=== PATIENT | female | born 1985 | race Caucasian/White ===

== ENCOUNTER 2018-09-14 19:47 | Emergency (ER) | payer MEDICARE, OTHER ==
[~2018-09-14] VITALS: Ht 157.5 cm; Wt 63.5 kg
--- NOTE | 2018-09-14 19:54 | ED.ADGEN ---
Adult General Chief Complaint Chief Complaint ".. I feel like I have pin s and needles all over my body...".. I ve had a cold... 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 A. .. but [facility].... they said I did not have the flu.. but I get these pin and needle sensation all over the body at different times and places..." HPI HPI Patient is a 33 year old female who presents with above history and complaints of upper respiratory infection and intermittent episodes of pins and needles in different parts of her body. Patient is in contact with sick individuals during her work as a social human services assistants. Patient denies any changes in soaps or foods or other exposures. No recent travel. No history of HIV. No hx of immunosuppression. Patient normally healthy. Patient does not follow-up primary care. Patient did not receive flu vaccination this season. Pt. has had Pneumonia last year. Pt. has had [place] previously. Review of Systems Review of Systems Constitutional: Hx of fever or chills []Hx. of Malaise Eyes: Denies change in visual acuity, redness, or eye pain [] HENT: Hx of nasal congestion and sore throat [] Respiratory: Denies cough or shortness of breath [] Cardiovascular: No additional information not addressed in HPI [] GI: Denies abdominal pain, nausea, vomiting, bloody stools or diarrhea [] : Denies dysuria or hematuria [] Musculoskeletal: Hx. myalgia, arthralgia Integument: Denies rash or skin lesions, complaints of pins and needle sensation Neurologic: Denies headache, focal weakness or sensory changes [] Endocrine: Denies polyuria or polydipsia [] All other systems were reviewed and found to be within normal limits, except as documented in this note. Family History Family History Son has influenza A Current Medications Current Medications Current Medications Medications (Trade) Dose Ordered Sig/Joan Start Time Stop Time Status Last Admin Dose Admin Lactated Ringer's 1,000 ml @ 1,000 mls/hr Q1H 09/14/18 20:30 09/14/18 21:29 DC 09/14/18 20:44 1,000 MLS/HR Prednisone (Prednisone) 50 mg 1X ONCE 09/14/18 20:30 09/14/18 20:31 DC 09/14/18 20:52 50 MG Allergies Allergies Allergies Coded Allergies Type Severity Reaction Last Updated Verified Penicillins Allergy Mild N/V 09/14/18 Yes Physical Exam Physical Exam Constitutional: Moderately acute distress, non-toxic appearance. [] HENT: Normocephalic, atraumatic, bilateral external ears normal, oropharynx moist, mild injection of pharynx, no oral exudates, nose swollen turbinates and rhinorrhea Eyes: PERRLA, EOMI, conjunctiva normal, no discharge. [] Neck: Normal range of motion, no tenderness, supple, no stridor. [] Cardiovascular:Heart rate regular rhythm, no murmur [] Lungs & Thorax: Bilateral breath sounds clear to auscultation [] Abdomen: Bowel sounds normal, soft, no tenderness, no masses, no pulsatile masses. [] Skin: Warm, dry, no erythema, no rash. [] Back: No tenderness, no CVA tenderness. [] Extremities: No tenderness, no cyanosis, no clubbing, ROM intact, no edema. [] Neurologic: Alert and oriented X 3, normal motor function, normal sensory function, no focal deficits noted. [] Psychologic: Affect anxious, judgement normal, mood normal. [] Current Patient Data Vital Signs Vital Signs Date Time Temp Pulse Resp B/P (MAP) Pulse Ox O2 Delivery O2 Flow Rate FiO2 09/14/18 21:30 92 116/40 (65) 100 09/14/18 21:04 16 Room Air 09/14/18 20:00 98.2 Lab Results Laboratory Tests Test 09/14/18 20:26 09/14/18 20:41 White Blood Count 3.4 x10^3/uL (4.0-11.0) L Red Blood Count 4.39 x10^6/uL (3.50-5.40) Hemoglobin 13.7 g/dL (12.0-15.5) Hematocrit 40.4 % (36.0-47.0) Mean Corpuscular Volume 92 fL (79-100) Mean Corpuscular Hemoglobin 31 pg (25-35) Mean Corpuscular Hemoglobin Concent 34 g/dL (31-37) Red Cell Distribution Width 13.7 % (11.5-14.5) Platelet Count 231 x10^3/uL (140-400) Neutrophils (%) (Auto) 54 % (31-73) Lymphocytes (%) (Auto) 23 % (24-48) L Monocytes (%) (Auto) 14 % (0-9) H Eosinophils (%) (Auto) 8 % (0-3) H Basophils (%) (Auto) 1 % (0-3) Neutrophils # (Auto) 1.8 x10^3uL (1.8-7.7) Lymphocytes # (Auto) 0.8 x10^3/uL (1.0-4.8) L Monocytes # (Auto) 0.5 x10^3/uL (0.0-1.1) Eosinophils # (Auto) 0.3 x10^3/uL (0.0-0.7) Basophils # (Auto) 0.0 x10^3/uL (0.0-0.2) Erythrocyte Sedimentation Rate 28 (0-25) H Urine Collection Type Unknown Urine Color Yellow Urine Clarity Clear Urine pH 7.0 Urine Specific [place] 1.020 Urine Protein 100 mg/dl (NEG-TRACE) Urine Glucose (UA) Neg mg/dL (NEG) Urine Ketones (Stick) Neg mg/dL (NEG) Urine Blood Trace (NEG) Urine Nitrite Neg (NEG) Urine Bilirubin Neg (NEG) Urine Urobilinogen Dipstick 0.2 mg/dL (0.2 mg/dL) Urine Leukocyte Esterase Neg (NEG) Urine RBC 0 /HPF (0-2) Urine WBC Occ /HPF (0-4) Urine Squamous Epithelial Cells Occ /LPF Urine Bacteria 0 /HPF (0-FEW) Sodium Level 140 mmol/L (136-145) Potassium Level 3.9 mmol/L (3.5-5.1) Chloride Level 102 mmol/L (98-107) Carbon Dioxide Level 27 mmol/L (21-32) Anion Gap 11 (6-14) Blood Urea Nitrogen 13 mg/dL (7-20) Creatinine 1.1 mg/dL (0.6-1.0) H Estimated GFR (Cockcroft-Gault) 56.9 Glucose Level 99 mg/dL (70-99) Calcium Level 9.2 mg/dL (8.5-10.1) Magnesium Level 2.0 mg/dL (1.8-2.4) Total Bilirubin 0.3 mg/dL (0.2-1.0) Direct Bilirubin 0.1 mg/dL (0.0-0.2) Aspartate Amino Transferase (AST) 41 U/L (15-37) H Alanine Aminotransferase (ALT) 67 U/L (14-59) H Alkaline Phosphatase 73 U/L (46-116) Creatine Kinase 53 U/L (26-192) Troponin I Quantitative < 0.017 ng/mL (0-0.055) Total Protein 7.7 g/dL (6.4-8.2) Albumin 4.0 g/dL (3.4-5.0) Urine Opiates Screen Neg (NEG) Urine Methadone Screen Neg (NEG) Urine Barbiturates Neg (NEG) Urine Phencyclidine Screen Neg (NEG) Urine Amphetamine/Methamphetamine Neg (NEG) Urine Benzodiazepines Screen Neg (NEG) Urine Cocaine Screen Neg (NEG) Urine Cannabinoids Screen Neg (NEG) Urine Ethyl Alcohol Neg (NEG) POC Urine HCG, Qualitative hcg negative (Negative) EKG EKG [] Radiology/Procedures Radiology/Procedures [] Course & Med Decision Making Course & Med Decision Making Pertinent Labs and Imaging studies reviewed. (See chart for details). Tylenol and ibuprofen for discomfort. Take prednisone 50 mg day for 5 days. Benadryl 25 mg up 4 times a day for congestion and drainage. Follow-up primary care. Return if any concerns [] Final Impression Final Impression 1. Subjective feeling of pins and needle 2. Viral syndrome[] 3. Elevation Monocytes 14 4. Elevation AST/ALT 41/67 5. Elevation Sed Rate 28 6. Mild Elevation Creat . 1.1 Dragon Disclaimer Dragon Disclaimer This electronic medical record was generated, in whole or in part, using a voice recognition dictation system. Dragon Disclaimer This chart was dictated in whole or in part using Voice Recognition software in a busy, high-work load, and often noisy Emergency Department environment. It may contain unintended and wholly unrecognized errors or omissions. Dragon Disclaimer This chart was dictated in whole or in part using Voice Recognition software in a busy, high-work load, and often noisy Emergency Department environment. It may contain unintended and wholly unrecognized errors or omissions. Discharge Summary Visit Information Final Diagnosis Problems Medical Problems: (1) Viral syndrome Status: Acute Brief Hospital Course Allergies Allergies Coded Allergies Type Severity Reaction Last Updated Verified Penicillins Allergy Mild N/V 09/14/18 Yes Vital Signs Vital Signs Date Time Temp Pulse Resp B/P (MAP) Pulse Ox O2 Delivery O2 Flow Rate FiO2 09/14/18 21:30 92 116/40 (65) 100 09/14/18 21:04 16 Room Air 09/14/18 20:00 98.2 Lab Results Laboratory Tests Test 09/14/18 20:26 09/14/18 20:41 White Blood Count 3.4 x10^3/uL (4.0-11.0) Red Blood Count 4.39 x10^6/uL (3.50-5.40) Hemoglobin 13.7 g/dL (12.0-15.5) Hematocrit 40.4 % (36.0-47.0) Mean Corpuscular Volume 92 fL (79-100) Mean Corpuscular Hemoglobin 31 pg (25-35) Mean Corpuscular Hemoglobin Concent 34 g/dL (31-37) Red Cell Distribution Width 13.7 % (11.5-14.5) Platelet Count 231 x10^3/uL (140-400) Neutrophils (%) (Auto) 54 % (31-73) Lymphocytes (%) (Auto) 23 % (24-48) Monocytes (%) (Auto) 14 % (0-9) Eosinophils (%) (Auto) 8 % (0-3) Basophils (%) (Auto) 1 % (0-3) Neutrophils # (Auto) 1.8 x10^3uL (1.8-7.7) Lymphocytes # (Auto) 0.8 x10^3/uL (1.0-4.8) Monocytes # (Auto) 0.5 x10^3/uL (0.0-1.1) Eosinophils # (Auto) 0.3 x10^3/uL (0.0-0.7) Basophils # (Auto) 0.0 x10^3/uL (0.0-0.2) Erythrocyte Sedimentation Rate 28 (0-25) Urine Collection Type Unknown Urine Color Yellow Urine Clarity Clear Urine pH 7.0 Urine Specific [place] 1.020 Urine Protein 100 mg/dl (NEG-TRACE) Urine Glucose (UA) Neg mg/dL (NEG) Urine Ketones (Stick) Neg mg/dL (NEG) Urine Blood Trace (NEG) Urine Nitrite Neg (NEG) Urine Bilirubin Neg (NEG) Urine Urobilinogen Dipstick 0.2 mg/dL (0.2 mg/dL) Urine Leukocyte Esterase Neg (NEG) Urine RBC 0 /HPF (0-2) Urine WBC Occ /HPF (0-4) Urine Squamous Epithelial Cells Occ /LPF Urine Bacteria 0 /HPF (0-FEW) Sodium Level 140 mmol/L (136-145) Potassium Level 3.9 mmol/L (3.5-5.1) Chloride Level 102 mmol/L (98-107) Carbon Dioxide Level 27 mmol/L (21-32) Anion Gap 11 (6-14) Blood Urea Nitrogen 13 mg/dL (7-20) Creatinine 1.1 mg/dL (0.6-1.0) Estimated GFR (Cockcroft-Gault) 56.9 Glucose Level 99 mg/dL (70-99) Calcium Level 9.2 mg/dL (8.5-10.1) Magnesium Level 2.0 mg/dL (1.8-2.4) Total Bilirubin 0.3 mg/dL (0.2-1.0) Direct Bilirubin 0.1 mg/dL (0.0-0.2) Aspartate Amino Transf (AST/SGOT) 41 U/L (15-37) Alanine Aminotransferase (ALT/SGPT) 67 U/L (14-59) Alkaline Phosphatase 73 U/L (46-116) Creatine Kinase 53 U/L (26-192) Troponin I Quantitative < 0.017 ng/mL (0-0.055) Total Protein 7.7 g/dL (6.4-8.2) Albumin 4.0 g/dL (3.4-5.0) Urine Opiates Screen Neg (NEG) Urine Methadone Screen Neg (NEG) Urine Barbiturates Neg (NEG) Urine Phencyclidine Screen Neg (NEG) Urine Amphetamine/Methamphetamine Neg (NEG) Urine Benzodiazepines Screen Neg (NEG) Urine Cocaine Screen Neg (NEG) Urine Cannabinoids Screen Neg (NEG) Urine Ethyl Alcohol Neg (NEG) Bedside Urine HCG, Qualitative hcg negative (Negative) Brief Hospital Course Ms. Rucker is a 33 old female who presented with viral syndrome. Discharge Information Condition at Discharge: Improved, Stable Disposition/Orders: D/C to Home Dischare Medications Current Medications Lactated Ringer's 1,000 ml @ 1,000 mls/hr Q1H IV Last administered on at 20:44; Admin Dose 1,000 MLS/HR; Start 09/14/18 at 20:30; Stop 09/14/18 at 21: 29; Status DC Prednisone (Prednisone) 50 mg 1X ONCE PO Last administered on 09/14/18at 20:52; Admin Dose 50 MG; Start 09/14/18 at 20:30; Stop 09/14/18 at 20:31; Status DC Active Scripts Active Prednisone 50 Mg Tablet 50 Mg PO DAILY Discharge Summary Visit Information Final Diagnosis Problems Medical Problems: (1) Viral syndrome Status: Acute Brief Hospital Course Allergies Allergies Coded Allergies Type Severity Reaction Last Updated Verified Penicillins Allergy Mild N/V 09/14/18 Yes Vital Signs Vital Signs Date Time Temp Pulse Resp B/P (MAP) Pulse Ox O2 Delivery O2 Flow Rate FiO2 09/14/18 21:30 92 116/40 (65) 100 09/14/18 21:04 16 Room Air 09/14/18 20:00 98.2 Lab Results Laboratory Tests Test 09/14/18 20:26 09/14/18 20:41 White Blood Count 3.4 x10^3/uL (4.0-11.0) Red Blood Count 4.39 x10^6/uL (3.50-5.40) Hemoglobin 13.7 g/dL (12.0-15.5) Hematocrit 40.4 % (36.0-47.0) Mean Corpuscular Volume 92 fL (79-100) Mean Corpuscular Hemoglobin 31 pg (25-35) Mean Corpuscular Hemoglobin Concent 34 g/dL (31-37) Red Cell Distribution Width 13.7 % (11.5-14.5) Platelet Count 231 x10^3/uL (140-400) Neutrophils (%) (Auto) 54 % (31-73) Lymphocytes (%) (Auto) 23 % (24-48) Monocytes (%) (Auto) 14 % (0-9) Eosinophils (%) (Auto) 8 % (0-3) Basophils (%) (Auto) 1 % (0-3) Neutrophils # (Auto) 1.8 x10^3uL (1.8-7.7) Lymphocytes # (Auto) 0.8 x10^3/uL (1.0-4.8) Monocytes # (Auto) 0.5 x10^3/uL (0.0-1.1) Eosinophils # (Auto) 0.3 x10^3/uL (0.0-0.7) Basophils # (Auto) 0.0 x10^3/uL (0.0-0.2) Erythrocyte Sedimentation Rate 28 (0-25) Urine Collection Type Unknown Urine Color Yellow Urine Clarity Clear Urine pH 7.0 Urine Specific [place] 1.020 Urine Protein 100 mg/dl (NEG-TRACE) Urine Glucose (UA) Neg mg/dL (NEG) Urine Ketones (Stick) Neg mg/dL (NEG) Urine Blood Trace (NEG) Urine Nitrite Neg (NEG) Urine Bilirubin Neg (NEG) Urine Urobilinogen Dipstick 0.2 mg/dL (0.2 mg/dL) Urine Leukocyte Esterase Neg (NEG) Urine RBC 0 /HPF (0-2) Urine WBC Occ /HPF (0-4) Urine Squamous Epithelial Cells Occ /LPF Urine Bacteria 0 /HPF (0-FEW) Sodium Level 140 mmol/L (136-145) Potassium Level 3.9 mmol/L (3.5-5.1) Chloride Level 102 mmol/L (98-107) Carbon Dioxide Level 27 mmol/L (21-32) Anion Gap 11 (6-14) Blood Urea Nitrogen 13 mg/dL (7-20) Creatinine 1.1 mg/dL (0.6-1.0) Estimated GFR (Cockcroft-Gault) 56.9 Glucose Level 99 mg/dL (70-99) Calcium Level 9.2 mg/dL (8.5-10.1) Magnesium Level 2.0 mg/dL (1.8-2.4) Total Bilirubin 0.3 mg/dL (0.2-1.0) Direct Bilirubin 0.1 mg/dL (0.0-0.2) Aspartate Amino Transf (AST/SGOT) 41 U/L (15-37) Alanine Aminotransferase (ALT/SGPT) 67 U/L (14-59) Alkaline Phosphatase 73 U/L (46-116) Creatine Kinase 53 U/L (26-192) Troponin I Quantitative < 0.017 ng/mL (0-0.055) Total Protein 7.7 g/dL (6.4-8.2) Albumin 4.0 g/dL (3.4-5.0) Urine Opiates Screen Neg (NEG) Urine Methadone Screen Neg (NEG) Urine Barbiturates Neg (NEG) Urine Phencyclidine Screen Neg (NEG) Urine Amphetamine/Methamphetamine Neg (NEG) Urine Benzodiazepines Screen Neg (NEG) Urine Cocaine Screen Neg (NEG) Urine Cannabinoids Screen Neg (NEG) Urine Ethyl Alcohol Neg (NEG) Bedside Urine HCG, Qualitative hcg negative (Negative) Brief Hospital Course Ms. Rucker is a 33 old [sex] who presented with [ ] Discharge Information Dischare Medications Current Medications Lactated Ringer's 1,000 ml @ 1,000 mls/hr Q1H IV Last administered on at 20:44; Admin Dose 1,000 MLS/HR; Start 09/14/18 at 20:30; Stop 09/14/18 at 21: 29; Status DC Prednisone (Prednisone) 50 mg 1X ONCE PO Last administered on 09/14/18at 20:52; Admin Dose 50 MG; Start 09/14/18 at 20:30; Stop 09/14/18 at 20:31; Status DC Active Scripts Active Prednisone 50 Mg Tablet 50 Mg PO DAILY EVETTE ALTMAN MD Sep 14, 2018 19:54
[2018-09-14] MEDS ORDERED: IV RINGERS SOLUTION,LACTATED 1,000 ML IV SCH (20:30)
[2018-09-14] MEDS ORDERED: predniSONE 10 MG TABLET PO ONE (20:30)
[2018-09-14] MEDS ORDERED: PRED50TA PO (20:34)
[2018-09-14 21:00] LABS: BASO % 1 % (0-3); EOS # 0.3 x10^3/uL (0.0-0.7); EOS % 8 % (0-3); HEMATOCRIT 40.4 % (36.0-47.0); HEMOGLOBIN 13.7 g/dL (12.0-15.5); LYMPH # 0.8 x10^3/uL (1.0-4.8); LYMPH % 23 % (24-48); MEAN CORPUSCULAR HEMOGLOBIN 31 pg (25-35); MEAN CORPUSCULAR HGB CONC 34 g/dL (31-37); MEAN CORPUSCULAR VOLUME 92 fL (79-100); MONO # 0.5 x10^3/uL (0.0-1.1); MONO % 14 % (0-9); NEUT # 1.8 x10^3uL (1.8-7.7); NEUT % 54 % (31-73); PLATELET COUNT 231 x10^3/uL (140-400); RED BLOOD COUNT 4.39 x10^6/uL (3.50-5.40); RED CELL DISTRIBUTION WIDTH 13.7 % (11.5-14.5); WHITE BLOOD COUNT 3.4 x10^3/uL (4.0-11.0)
[2018-09-14 21:11] LABS: BARBITURATES NEG (NEG); BENZODIAZEPINES NEG (NEG); CANNABINOIDS NEG (NEG); COCAINE NEG (NEG); METHADONE NEG (NEG); OPIATES NEG (NEG); PHENCYCLIDINE NEG (NEG)
[2018-09-14 21:16] LABS: BACTERIA,URINE 0 /HPF (0-FEW); BILIRUBIN,URINE NEG (NEG); CALCIUM 9.2 mg/dL (8.5-10.1); CLARITY,URINE CLEAR; COLOR,URINE YELLOW; CREATININE 1.1 mg/dL (0.6-1.0); DIRECT BILIRUBIN 0.1 mg/dL (0.0-0.2); GFR 56.9; GLUCOSE,URINE NEG (NEG); NITRITE,URINE NEG (NEG); POTASSIUM 3.9 mmol/L (3.5-5.1); RBC,URINE 0 /HPF (0-2); SQUAMOUS EPITHELIAL CELL,UR OCC /LPF; TOTAL BILIRUBIN 0.3 mg/dL (0.2-1.0); TOTAL PROTEIN 7.7 g/dL (6.4-8.2); UROBILINOGEN,URINE 0.2 mg/dL (0.2 mg/dL); WBC,URINE OCC /HPF (0-4)
[2018-09-14 21:23] LABS: AMPHETAMINE/METHAMPHETAMINE NEG (NEG)
[2018-09-14 21:30] VITALS: BP 116/40
[2018-09-14 22:04] LABS: SEDIMENTATION RATE 28 (0-25)
== END 2018-09-14 22:14 | disposition home or self-care (01) ==
LOC: ER 19:47
DX: B34.9 Viral infection, unspecified (principal); R20.2 Paresthesia of skin; D72.828 Other elevated white blood cell count; R94.5 Abnormal results of liver function studies; R70.0 Elevated erythrocyte sedimentation rate; R79.89 Other specified abnormal findings of blood chemistry; Z88.0 Allergy status to penicillin
CPT/HCPCS: 36415; 80048; 80076; 80307; 81001; 81025; 82550; 83735; 84443; 84484; 85025; 85651; 99283; J7120; J7512

== ENCOUNTER 2019-01-19 14:25 | Emergency (ER) | payer OTHER ==
[~2019-01-19] VITALS: Ht 160 cm; Wt 66.6 kg
[~2019-01-19 14:25] MED LIST: PRED50TA PO
[2019-01-19 14:26] VITALS: BP 113/69
--- NOTE | 2019-01-19 14:50 | PHYS DOC ---
Past History Past Medical History: Anxiety, Asthma, Depression Past Surgical History: Smoking: Non-smoker Alcohol Use: Rarely Drug Use: None Adult General Chief Complaint Chief Complaint: FATIGUE HPI HPI Patient is a 33-year-old female presents with fatigue and malaise for the past 3 weeks. Nothing makes the symptoms better or worse. She denies any chest pain or palpitations. She has a history of depression and anxiety for which she's been on Klonopin and Lexapro without any recent changes. She denies any suicidal or homicidal ideation. No nausea or vomiting. Nothing makes the symptoms better or worse. She has not seen any other health care providers for this.[] Review of Systems Review of Systems Constitutional: Denies fever or chills [] Eyes: Denies change in visual acuity, redness, or eye pain [] HENT: Denies nasal congestion or sore throat [] Respiratory: Denies cough or shortness of breath [] Cardiovascular: No chest pain or palpitations[] GI: Denies abdominal pain, nausea, vomiting, bloody stools or diarrhea [] : Denies dysuria or hematuria [] Musculoskeletal: Denies back pain or joint pain [] Integument: Denies rash or skin lesions [] Neurologic: Denies headache, focal weakness or sensory changes [] Endocrine: Denies polyuria or polydipsia [] All other systems were reviewed and found to be within normal limits, except as documented in this note. Allergies Allergies Allergies Coded Allergies Type Severity Reaction Last Updated Verified Penicillins Allergy Mild N/V 09/14/18 Yes Physical Exam Physical Exam Constitutional: Well developed, well nourished, no acute distress, non-toxic appearance. [] HENT: Normocephalic, atraumatic, bilateral external ears normal, oropharynx moist, no oral exudates, nose normal. [] Eyes: PERRLA, EOMI, conjunctiva normal, no discharge. [] Neck: Normal range of motion, no tenderness, supple, no stridor. [] Cardiovascular:Heart rate regular rhythm, no murmur [] Lungs & Thorax: Bilateral breath sounds clear to auscultation [] Abdomen: Bowel sounds normal, soft, no tenderness, no masses, no pulsatile masses. [] Skin: Warm, dry, no erythema, no rash. [] Back: No tenderness, no CVA tenderness. [] Extremities: No tenderness, no cyanosis, no clubbing, ROM intact, no edema. [] Neurologic: Alert and oriented X 3, normal motor function, normal sensory function, no focal deficits noted. [] Psychologic: Affect normal, judgement normal, mood normal. [] Current Patient Data Vital Signs Vital Signs Date Time Temp Pulse Resp B/P (MAP) Pulse Ox O2 Delivery O2 Flow Rate FiO2 01/19/19 14:25 97.6 87 16 113/69 (84) 97 Room Air EKG EKG [] Radiology/Procedures Radiology/Procedures [] Course & Med Decision Making Course & Med Decision Making Pertinent Labs and Imaging studies reviewed. (See chart for details) ED course: Patient arrived, was placed in bed, and tolerated exam well. After the return of the laboratory studies, these were discussed with the patient who voiced understanding. All questions were answered. She was discharged in improved condition. Medical decision making: Patient appears to have a urinary tract infection. There is no evidence of systemic toxicity, no anemia, no significant electrolyte abnormality. Her renal function appears unchanged from when it was performed earlier this year. TSH is pending at this time however it was normal earlier this year as well.[] Dragon Disclaimer Dragon Disclaimer This electronic medical record was generated, in whole or in part, using a voice recognition dictation system. Departure Departure: Impression: Primary Impression: Urinary tract infection Additional Impression: Fatigue Disposition: 01 HOME, SELF-CARE Condition: IMPROVED Referrals: PCP,NO (PCP) Patient Instructions: Fatigue, Urinary Tract Infection Additional Instructions: Plan plenty of fluids. Take the medication as prescribed. Follow-up with your regular doctor in 2 days. If you do not have a regular doctor list of local clinics will be provided. Return to the ER if worsening symptoms or any other concerns. Scripts Sulfamethoxazole/Trimethoprim (BACTRIM DS TABLET) 1 Each Tablet 1 TAB PO BID for UTI, #20 TAB Prov: ADELINA FISHER DO 01/19/19 Problem Qualifiers Primary Impression: Urinary tract infection Urinary tract infection type: site unspecified Hematuria presence: without hematuria Qualified Codes: N39.0 - Urinary tract infection, site not specified Additional Impression: Fatigue Fatigue type: unspecified Qualified Codes: R53.83 - Other fatigue ADELINA FISHER DO Jan 19, 2019 14:50
[2019-01-19 15:30] LABS: BASO # 0.1 x10^3/uL (0.0-0.2); BASO % 1 % (0-3); EOS # 0.4 x10^3/uL (0.0-0.7); EOS % 6 % (0-3); HEMATOCRIT 40.5 % (36.0-47.0); HEMOGLOBIN 13.6 g/dL (12.0-15.5); LYMPH # 1.2 x10^3/uL (1.0-4.8); LYMPH % 22 % (24-48); MEAN CORPUSCULAR HEMOGLOBIN 32 pg (25-35); MEAN CORPUSCULAR HGB CONC 34 g/dL (31-37); MEAN CORPUSCULAR VOLUME 96 fL (79-100); MONO # 0.6 x10^3/uL (0.0-1.1); MONO % 10 % (0-9); NEUT # 3.4 x10^3uL (1.8-7.7); NEUT % 61 % (31-73); PLATELET COUNT 258 x10^3/uL (140-400); RED BLOOD COUNT 4.21 x10^6/uL (3.50-5.40); RED CELL DISTRIBUTION WIDTH 14.8 % (11.5-14.5); WHITE BLOOD COUNT 5.5 x10^3/uL (4.0-11.0)
[2019-01-19 15:39] LABS: ALBUMIN 3.9 g/dL (3.4-5.0); ALBUMIN/GLOBULIN RATIO 1.2 (1.0-1.7); CALCIUM 8.7 mg/dL (8.5-10.1); CREATININE 1.1 mg/dL (0.6-1.0); GFR 56.9; POTASSIUM 4.5 mmol/L (3.5-5.1); TOTAL BILIRUBIN 0.4 mg/dL (0.2-1.0); TOTAL PROTEIN 7.2 g/dL (6.4-8.2)
[2019-01-19 16:27] LABS: BACTERIA,URINE MOD /HPF (0-FEW); BILIRUBIN,URINE NEG (NEG); CLARITY,URINE HAZY; COLOR,URINE YELLOW; GLUCOSE,URINE NEG (NEG); NITRITE,URINE POS (NEG); RBC,URINE OCC /HPF (0-2); SQUAMOUS EPITHELIAL CELL,UR OCC /LPF; UROBILINOGEN,URINE 0.2 mg/dL (0.2 mg/dL); WBC,URINE TNTC /HPF (0-4)
[2019-01-19] MEDS ORDERED: SULF1TAB24 PO (16:42)
== END 2019-01-19 16:45 | disposition home or self-care (01) ==
LOC: ER 14:25
DX: R53.83 Other fatigue (principal); N39.0 Urinary tract infection, site not specified; J45.909 Unspecified asthma, uncomplicated; Z88.0 Allergy status to penicillin
CPT/HCPCS: 36415; 80053; 81001; 81025; 84443; 85025; 87086; 99284

== ENCOUNTER 2019-03-31 18:48 | Emergency (ER) | payer OTHER ==
[~2019-03-31 18:48] MED LIST changes: +SULF1TAB24 PO
[2019-03-31] MEDS ORDERED: IV RINGERS SOLUTION,LACTATED 1,000 ML IV ONE (19:00)
[2019-03-31 19:52] LABS: BARBITURATES NEG (NEG); BENZODIAZEPINES NEG (NEG); CANNABINOIDS NEG (NEG); COCAINE NEG (NEG); METHADONE NEG (NEG); OPIATES NEG (NEG); PHENCYCLIDINE NEG (NEG)
[2019-03-31 19:53] LABS: AMPHETAMINE/METHAMPHETAMINE NEG (NEG)
[2019-03-31 20:06] LABS: BASO # 0.1 x10^3/uL (0.0-0.2); BASO % 1 % (0-3); EOS # 0.4 x10^3/uL (0.0-0.7); EOS % 6 % (0-3); HEMATOCRIT 40.9 % (36.0-47.0); HEMOGLOBIN 13.8 g/dL (12.0-15.5); LYMPH # 1.2 x10^3/uL (1.0-4.8); LYMPH % 17 % (24-48); MEAN CORPUSCULAR HEMOGLOBIN 32 pg (25-35); MEAN CORPUSCULAR HGB CONC 34 g/dL (31-37); MEAN CORPUSCULAR VOLUME 95 fL (79-100); MONO # 0.5 x10^3/uL (0.0-1.1); MONO % 7 % (0-9); NEUT # 4.7 x10^3uL (1.8-7.7); NEUT % 69 % (31-73); PLATELET COUNT 267 x10^3/uL (140-400); RED BLOOD COUNT 4.29 x10^6/uL (3.50-5.40); RED CELL DISTRIBUTION WIDTH 13.6 % (11.5-14.5); WHITE BLOOD COUNT 6.8 x10^3/uL (4.0-11.0)
[2019-03-31 20:12] LABS: BACTERIA,URINE MANY /HPF (0-FEW); BILIRUBIN,URINE NEG (NEG); CLARITY,URINE HAZY; COLOR,URINE YELLOW; GLUCOSE,URINE NEG (NEG); NITRITE,URINE POS (NEG); SQUAMOUS EPITHELIAL CELL,UR OCC /LPF; UROBILINOGEN,URINE 0.2 mg/dL (0.2 mg/dL)
[2019-03-31 20:21] LABS: ALBUMIN 4.3 g/dL (3.4-5.0); CALCIUM 9.3 mg/dL (8.5-10.1); CREATININE 1.1 mg/dL (0.6-1.0); DIRECT BILIRUBIN 0.1 mg/dL (0.0-0.2); GFR 56.9; POTASSIUM 3.9 mmol/L (3.5-5.1); TOTAL BILIRUBIN 0.5 mg/dL (0.2-1.0); TOTAL PROTEIN 8.3 g/dL (6.4-8.2)
[2019-03-31 21:05] VITALS: BP 141/68
[2019-03-31] MEDS ORDERED: CEPHALEXIN 250 MG CAPSULE PO ONE (21:30)
--- NOTE | 2019-03-31 21:59 | ED.ADGEN ---
Past History Past Medical History: Anxiety Past Surgical History: Smoking: Non-smoker Alcohol Use: None Drug Use: None Adult General Chief Complaint Chief Complaint ".. I am ... and I am having some vaginal bleeding..." HPI HPI Patient is a 33 year old female who presents with vaginal spotting. Pt had missed last menstruation. Recent urinary test indicated she was . This is patient's second . Previous by due to non- progression. Patient has not had any history of STDs. Has had approximately 25- 50 sex partners in her life. Patient denies fears of STD. Patient does have a follow-up appointment with STOCK MANAGER on the the March. Patient denies any trauma. No history immunosuppression. Recent travel.. Review of Systems Review of Systems Constitutional: Denies fever or chills [] Eyes: Denies change in visual acuity, redness, or eye pain [] HENT: Denies nasal congestion or sore throat [] Respiratory: Denies cough or shortness of breath [] Cardiovascular: No additional information not addressed in HPI [] GI: Mild abdomen cramping/abdominal pain, nausea. Denies, vomiting, bloody stools or diarrhea [] : Denies dysuria or hematuria []complaints of vaginal bleeding Musculoskeletal: Denies back pain or joint pain [] Integument: Denies rash or skin lesions [] Neurologic: Denies headache, focal weakness or sensory changes [] Endocrine: Denies polyuria or polydipsia [] All other systems were reviewed and found to be within normal limits, except as documented in this note. Family History Family History Noncontributory Current Medications Current Medications Current Medications Medications (Trade) Dose Ordered Sig/Joan Start Time Stop Time Status Last Admin Dose Admin Cephalexin HCl (Keflex) 500 mg 1X ONCE 03/31/19 21:30 03/31/19 21:31 DC 03/31/19 21:40 500 MG Lactated Ringer's 1,000 ml @ 1,000 mls/hr 1X ONCE 03/31/19 19:00 03/31/19 19:59 DC 03/31/19 20:03 1,000 MLS/HR Allergies Allergies Allergies Coded Allergies Type Severity Reaction Last Updated Verified Penicillins Allergy Mild N/V 09/14/18 Yes Physical Exam Physical Exam Constitutional: Well developed, well nourished, moderate acute distress, non- toxic appearance. [] HENT: Normocephalic, atraumatic, bilateral external ears normal, oropharynx moist, no oral exudates, nose normal. [] Eyes: PERRLA, EOMI, conjunctiva normal, no discharge. [] Neck: Normal range of motion, no tenderness, supple, no stridor. [] Cardiovascular:Heart rate regular rhythm, no murmur [] Lungs & Thorax: Bilateral breath sounds clear to auscultation [] Abdomen: Bowel sounds normal, soft, no tenderness, no masses, no pulsatile masses. [] Surgical scar. Pelvic exam has mild spotting from office. No cervical motion tenderness. No significant inflammation appreciated. Rectal exam nontender hard stool. FHR 106 Skin: Warm, dry, no erythema, no rash. [] Back: No tenderness, no CVA tenderness. [] Extremities: No tenderness, no cyanosis, no clubbing, ROM intact, no edema. [] Neurologic: Alert and oriented X 3, normal motor function, normal sensory function, no focal deficits noted. [] Psychologic: Affect anxious, judgement normal, mood normal. [] Current Patient Data Vital Signs Vital Signs Date Time Temp Pulse Resp B/P (MAP) Pulse Ox O2 Delivery O2 Flow Rate FiO2 03/31/19 21:05 77 20 141/68 (92) 98 Room Air Lab Results Laboratory Tests Test 03/31/19 19:02 03/31/19 19:38 03/31/19 19:40 Urine Collection Type Unknown Urine Color Yellow Urine Clarity Hazy Urine pH 6.0 Urine Specific [place] 1.020 Urine Protein 100 mg/dl (NEG-TRACE) Urine Glucose (UA) Neg mg/dL (NEG) Urine Ketones (Stick) Neg mg/dL (NEG) Urine Blood Mod (NEG) Urine Nitrite Pos (NEG) Urine Bilirubin Neg (NEG) Urine Urobilinogen Dipstick 0.2 mg/dL (0.2 mg/dL) Urine Leukocyte Esterase Small (NEG) Urine RBC 1-2 /HPF (0-2) Urine WBC 11-20 /HPF (0-4) Urine Squamous Epithelial Cells Occ /LPF Urine Bacteria Many /HPF (0-FEW) Urine Opiates Screen Neg (NEG) Urine Methadone Screen Neg (NEG) Urine Barbiturates Neg (NEG) Urine Phencyclidine Screen Neg (NEG) Urine Amphetamine/Methamphetamine Neg (NEG) Urine Benzodiazepines Screen Neg (NEG) Urine Cocaine Screen Neg (NEG) Urine Cannabinoids Screen Neg (NEG) Urine Ethyl Alcohol Neg (NEG) POC Urine HCG, Qualitative hcg positive (Negative) White Blood Count 6.8 x10^3/uL (4.0-11.0) Red Blood Count 4.29 x10^6/uL (3.50-5.40) Hemoglobin 13.8 g/dL (12.0-15.5) Hematocrit 40.9 % (36.0-47.0) Mean Corpuscular Volume 95 fL (79-100) Mean Corpuscular Hemoglobin 32 pg (25-35) Mean Corpuscular Hemoglobin Concent 34 g/dL (31-37) Red Cell Distribution Width 13.6 % (11.5-14.5) Platelet Count 267 x10^3/uL (140-400) Neutrophils (%) (Auto) 69 % (31-73) Lymphocytes (%) (Auto) 17 % (24-48) L Monocytes (%) (Auto) 7 % (0-9) Eosinophils (%) (Auto) 6 % (0-3) H Basophils (%) (Auto) 1 % (0-3) Neutrophils # (Auto) 4.7 x10^3uL (1.8-7.7) Lymphocytes # (Auto) 1.2 x10^3/uL (1.0-4.8) Monocytes # (Auto) 0.5 x10^3/uL (0.0-1.1) Eosinophils # (Auto) 0.4 x10^3/uL (0.0-0.7) Basophils # (Auto) 0.1 x10^3/uL (0.0-0.2) Prothrombin Time 10.0 SEC (9.4-11.4) Prothrombin Time INR 1.0 (0.9-1.1) Activated Partial Thromboplast Time 25 SEC (23-33) Maternal Serum HCG Beta Subunit 74872 mIU/mL (0-6) H Sodium Level 137 mmol/L (136-145) Potassium Level 3.9 mmol/L (3.5-5.1) Chloride Level 101 mmol/L (98-107) Carbon Dioxide Level 25 mmol/L (21-32) Anion Gap 11 (6-14) Blood Urea Nitrogen 12 mg/dL (7-20) Creatinine 1.1 mg/dL (0.6-1.0) H Estimated GFR (Cockcroft-Gault) 56.9 Glucose Level 93 mg/dL (70-99) Calcium Level 9.3 mg/dL (8.5-10.1) Magnesium Level 2.0 mg/dL (1.8-2.4) Total Bilirubin 0.5 mg/dL (0.2-1.0) Direct Bilirubin 0.1 mg/dL (0.0-0.2) Aspartate Amino Transferase (AST) 21 U/L (15-37) Alanine Aminotransferase (ALT) 29 U/L (14-59) Alkaline Phosphatase 70 U/L (46-116) Total Protein 8.3 g/dL (6.4-8.2) H Albumin 4.3 g/dL (3.4-5.0) Microbiology 03/31/19 Wet Prep - Final, Complete EKG EKG [] Radiology/Procedures Radiology/Procedures [][place] [address] IMAGING REPORT Signed PATIENT: CHRISSIE UPGH EACCOUNT: [id number] : 1985 LOCATION: ER AGE: 33 SEX: F EXAM STATUS: REG ER ORD. PHYSICIAN: EVETTE ALTMAN MD REASON: bleeding and discomfort, US AWARE.-mp PROCEDURE: OB <14 WKS W/TV Examination: OB <14 WKS W/TV History: Bleeding and discomfort Comparison/Correlation: None Findings: OB ultrasound exam was performed utilizing transabdominal technique. Uterus measures 9 cm x 5.2 cm x 5.2 cm. Intrauterine gestational sac is present. Yolk sac identified to measure 0.3 cm diameter. pole with crown-rump length of 0.3 cm corresponds to 5 weeks 6 day gestation. Mean gestational sac diameter of 1.34 cm corresponding to 6 weeks 1 day gestation. heart rate is 105 bpm. No subchronic hemorrhage. EDC by ultrasound and last menstrual period is 11/24/2019. Bilateral ovarian flow is normal. Right ovary measures 2.6 cm x 2.8 cm x 1.9 cm left ovary measures 3 cm x 2.6 cm x 2.4 cm. Impression: Single living intrauterine gestation corresponds to 6 weeks 0 days gestation. No mass or suspicious process. Age by crown-rump length approximates age by last menstrual period. No adnexal masses seen. Electronically signed by: Titus Busby MD (04/01/2019 12:04 AM) [facility] DICTATED AND SIGNED BY: TITUS BUSBY MD DATE: 04/01/19 0004 CC: EVETTE ALTMAN MD; PCP,NO ~ Course & Med Decision Making Course & Med Decision Making Pertinent Labs and Imaging studies reviewed. (See chart for details) Patient to monitor vaginal bleeding. Patient to take ultrasound disc on follow- up with STOCK MANAGER. Patient take vitamin. Patient to take Keflex 500 mg 3 times a day for UTI. Patient follow-up cultures. Patient return if any concerns. Patient take only Tylenol for discomfort. [] Final Impression Final Impression 1. Threaten 2. Hemoglobin 13.8 3. Blood type A+ 4. UTI 5. BHCG = 34,384 6. EDC= 11/24/2019 7. IUP 6 weeks FHR 106 ] Dragon Disclaimer Dragon Disclaimer This electronic medical record was generated, in whole or in part, using a voice recognition dictation system. EVETTE ALTMAN MD Mar 31, 2019 21:59
--- NOTE | 2019-04-01 00:07 | RAD ---
Examination: OB <14 WKS W/TV History: Bleeding and discomfort Comparison/Correlation: None Findings: OB ultrasound exam was performed utilizing transabdominal technique. Uterus measures 9 cm x 5.2 cm x 5.2 cm. Intrauterine gestational sac is present. Yolk sac identified to measure 0.3 cm diameter. pole with crown-rump length of 0.3 cm corresponds to 5 weeks 6 day gestation. Mean gestational sac diameter of 1.34 cm corresponding to 6 weeks 1 day gestation. heart rate is 105 bpm. No subchronic hemorrhage. EDC by ultrasound and last menstrual period is 11/24/2019. Bilateral ovarian flow is normal. Right ovary measures 2.6 cm x 2.8 cm x 1.9 cm left ovary measures 3 cm x 2.6 cm x 2.4 cm. Impression: Single living intrauterine gestation corresponds to 6 weeks 0 days gestation. No mass or suspicious process. Age by crown-rump length approximates age by last menstrual period. No adnexal masses seen. Electronically signed by: Titus Almazan MD (04/01/2019 12:04 AM) [facility]
[2019-04-01] MEDS ORDERED: CEPH-264 PO (00:30)
[2019-04-02 19:07] LABS: CHLAMYDIA PROBE Negative (Negative)
== END 2019-04-01 00:46 | disposition home or self-care (01) ==
LOC: ER 18:48
DX: O20.0 Threatened abortion (principal); O23.41 Unspecified infection of urinary tract in pregnancy, first trimester; O99.341 Other mental disorders complicating pregnancy, first trimester; F41.9 Anxiety disorder, unspecified; Z3A.01 Less than 8 weeks gestation of pregnancy; Z98.890 Other specified postprocedural states; Z88.0 Allergy status to penicillin
CPT/HCPCS: 36415; 76801; 76817; 80048; 80076; 80307; 81001; 81025; 83735; 84443; 84702; 85025; 85610; 85730; 86592; 86703; 86705; 86709; 86803; 86900; 86901; 87086; 87340; 87491; 87591; 99285; J7120; Q0111

== ENCOUNTER 2019-05-05 02:46 | Emergency (ER) | payer OTHER ==
[~2019-05-05 02:46] MED LIST changes: +CEPH-264 PO
[2019-05-05 03:44] LABS: BASO % 1 % (0-3); EOS # 0.4 x10^3/uL (0.0-0.7); EOS % 5 % (0-3); HEMATOCRIT 37.7 % (36.0-47.0); LYMPH # 1.7 x10^3/uL (1.0-4.8); LYMPH % 21 % (24-48); MEAN CORPUSCULAR HEMOGLOBIN 32 pg (25-35); MEAN CORPUSCULAR HGB CONC 34 g/dL (31-37); MEAN CORPUSCULAR VOLUME 93 fL (79-100); MONO # 0.6 x10^3/uL (0.0-1.1); MONO % 8 % (0-9); NEUT # 5.1 x10^3uL (1.8-7.7); NEUT % 65 % (31-73); PLATELET COUNT 265 x10^3/uL (140-400); RED BLOOD COUNT 4.05 x10^6/uL (3.50-5.40); RED CELL DISTRIBUTION WIDTH 12.9 % (11.5-14.5); WHITE BLOOD COUNT 7.9 x10^3/uL (4.0-11.0)
[2019-05-05 04:00] LABS: CREATININE 0.9 mg/dL (0.6-1.0); GFR 71.7; POTASSIUM 3.9 mmol/L (3.5-5.1)
[2019-05-05 04:05] VITALS: BP 150/88
--- NOTE | 2019-05-26 14:42 | ED.ADGEN ---
Past History Past Medical History: Anxiety Past Surgical History: Smoking: Non-smoker Alcohol Use: None Drug Use: None Adult General Chief Complaint Chief Complaint Vaginal bleeding in HPI HPI Patient is a 33-year-old AA week gestation female presents with intermittent vaginal leading for the past 2 weeks. Patient was evaluated emergency department approximately 2 weeks ago and diagnosed with a viable 6 week IUP. Patient states she bled for 5 days after that and then the bleeding resumed last evening. Reports normal dark red blood. Denies dizziness lightheadedness, pelvic or abdominal pain. Patient spoke with OB and was told that if bleeding continued she would need a follow-up ultrasound.[] Review of Systems Review of Systems Review symptoms as per history of present illness. All other review symptoms are negative. All other systems were reviewed and found to be within normal limits, except as documented in this note. Allergies Allergies Allergies Coded Allergies Type Severity Reaction Last Updated Verified Penicillins Allergy Mild N/V 09/14/18 Yes Physical Exam Physical Exam Constitutional: Well developed, well nourished, no acute distress, non-toxic appearance. [] HENT: Normocephalic, atraumatic, bilateral external ears normal, oropharynx moist, no oral exudates, nose normal. [] Eyes: PERRLA, EOMI, conjunctiva normal, no discharge. [] Neck: Normal range of motion, no tenderness, supple, no stridor. [] Cardiovascular:Heart rate regular rhythm, no murmur [] Lungs & Thorax: Bilateral breath sounds clear to auscultation [] Abdomen: Bowel sounds normal, soft, no tenderness. [] Skin: Warm, dry, no erythema, no rash. [] Back: No tenderness, no CVA tenderness. [] Extremities: No tenderness, no edema. [] Neurologic: Alert and oriented X 3, normal motor function, normal sensory function, no focal deficits noted. [] Psychologic: Affect normal, judgement normal, mood normal. [] Current Patient Data Vital Signs Vital Signs Date Time Temp Pulse Resp B/P (MAP) Pulse Ox O2 Delivery O2 Flow Rate FiO2 05/05/19 04:05 83 18 150/88 (108) 98 Room Air 05/05/19 02:46 97.8 Lab Results Laboratory Tests Test 05/05/19 03:23 White Blood Count 7.9 x10^3/uL (4.0-11.0) Red Blood Count 4.05 x10^6/uL (3.50-5.40) Hemoglobin 13.0 g/dL (12.0-15.5) Hematocrit 37.7 % (36.0-47.0) Mean Corpuscular Volume 93 fL (79-100) Mean Corpuscular Hemoglobin 32 pg (25-35) Mean Corpuscular Hemoglobin Concent 34 g/dL (31-37) Red Cell Distribution Width 12.9 % (11.5-14.5) Platelet Count 265 x10^3/uL (140-400) Neutrophils (%) (Auto) 65 % (31-73) Lymphocytes (%) (Auto) 21 % (24-48) L Monocytes (%) (Auto) 8 % (0-9) Eosinophils (%) (Auto) 5 % (0-3) H Basophils (%) (Auto) 1 % (0-3) Neutrophils # (Auto) 5.1 x10^3uL (1.8-7.7) Lymphocytes # (Auto) 1.7 x10^3/uL (1.0-4.8) Monocytes # (Auto) 0.6 x10^3/uL (0.0-1.1) Eosinophils # (Auto) 0.4 x10^3/uL (0.0-0.7) Basophils # (Auto) 0.0 x10^3/uL (0.0-0.2) Maternal Serum HCG Beta Subunit 629149 mIU/mL (0-6) H Sodium Level 141 mmol/L (136-145) Potassium Level 3.9 mmol/L (3.5-5.1) Chloride Level 103 mmol/L (98-107) Carbon Dioxide Level 27 mmol/L (21-32) Anion Gap 11 (6-14) Blood Urea Nitrogen 11 mg/dL (7-20) Creatinine 0.9 mg/dL (0.6-1.0) Estimated GFR (Cockcroft-Gault) 71.7 Glucose Level 99 mg/dL (70-99) Calcium Level 9.0 mg/dL (8.5-10.1) EKG EKG [] Radiology/Procedures Radiology/Procedures [] Course & Med Decision Making Course & Med Decision Making Pertinent Labs and Imaging studies reviewed. (See chart for details) [Labs, vital signs stable. Recommendations are for OB follow-up later today.] Final Impression Final Impression [#1 vaginal bleeding in first trimester.] Jane Disclaimer Dragon Disclaimer This electronic medical record was generated, in whole or in part, using a voice recognition dictation system. PANCHO DUKE DO May 26, 2019 14:42
== END 2019-05-05 04:05 | disposition home or self-care (01) ==
LOC: ER 02:46
DX: O46.91 Antepartum hemorrhage, unspecified, first trimester (principal); Z3A.01 Less than 8 weeks gestation of pregnancy; Z88.0 Allergy status to penicillin
CPT/HCPCS: 36415; 80048; 84702; 85025; 99284

== ENCOUNTER 2020-01-11 22:55 | Emergency (ER) | payer OTHER ==
[~2020-01-11] VITALS: Ht 160 cm; Wt 63.0 kg
[2020-01-11] MEDS ORDERED: PRED50TA PO (23:56)
[2020-01-11] MEDS ORDERED: TRAM50TA PO (23:56)
--- NOTE | 2020-01-11 23:57 | PHYS DOC ---
Past History Past Medical History: Anxiety Past Surgical History: Smoking: Non-smoker Alcohol Use: None Drug Use: None General Adult EDM: Chief Complaint: BACK PAIN OR INJURY HPI: HPI: 34-year-old female presents with 3-day history of upper back/ neck pain. She has a history of lumbar scoliosis. She denies any trauma or overuse. Is a deep cramping sensation that radiates down both arms to her fingers. She has had symptoms like this before in the past that eventually went away. Patient was told she may have renal disease of unknown origin. She does not regularly see a physician. She denies fever chills. Review of Systems: Review of Systems: Constitutional: Denies fever or chills Eyes: Denies change in visual acuity HENT: Denies nasal congestion or sore throat Respiratory: Denies cough or shortness of breath Cardiovascular: Denies chest pain or edema GI: Denies abdominal pain, nausea, vomiting, bloody stools or diarrhea : Denies dysuria Musculoskeletal: Pain at the cervical paraspinal muscles and trapezius Integument: Denies rash Neurologic: Denies headache, focal weakness or sensory changes Endocrine: Denies polyuria or polydipsia Lymphatic: Denies swollen glands Psychiatric: Denies depression or anxiety Heart Score: Risk Factors: Risk Factors: DM, Current or recent (<one month) smoker, HTN, HLP, family history of CAD, obesity. Risk Scores: Score 0 - 3: 2.5% MACE over next 6 weeks - Discharge Home Score 4 - 6: 20.3% MACE over next 6 weeks - Admit for Clinical Observation Score 7 - 10: 72.7% MACE over next 6 weeks - Early Invasive Strategies Allergies: Allergies: Allergies Coded Allergies Type Severity Reaction Last Updated Verified Penicillins Allergy Mild N/V 09/14/18 Yes Physical Exam: PE: Constitutional: Well developed, well nourished, no acute distress, non-toxic appearance. [] HENT: Normocephalic, atraumatic, bilateral external ears normal, oropharynx moist, no oral exudates, nose normal. [] Eyes: PERRLA, EOMI, conjunctiva normal, no discharge. [] Neck: Normal range of motion, para cervical muscle tenderness, supple, no stridor. [] Cardiovascular: Heart rate regular rhythm, no murmur [] Lungs & Thorax: Bilateral breath sounds clear to auscultation [] Abdomen: Bowel sounds normal, soft, no tenderness, no masses, no pulsatile masses. [] Skin: Warm, dry, no erythema, no rash. [] Back: No tenderness, no CVA tenderness. [] Extremities: No tenderness, no cyanosis, no clubbing, ROM intact, no edema. [] Neurologic: Alert and oriented X 3, normal motor function, normal sensory function, no focal deficits noted. [] Psychologic: Affect normal, judgement normal, mood normal. [] EKG: EKG: [] Radiology/Procedures: Radiology/Procedures: [] Course & Med Decision Making: Course & Med Decision Making Pertinent Labs and Imaging studies reviewed. (See chart for details) We the patient describes her symptoms, it sounds like the pain syndrome or an autoimmune inflammatory disorder. She is never been tested for this. I will put her on 5 days of prednisone and give her 10 tramadol. I have strongly advised she follow-up with a primary care physician for further testing and to follow-up her potential renal problem. She is stable for discharge at this time. [] Dragon Disclaimer: Dragon Disclaimer: This electronic medical record was generated, in whole or in part, using a voice recognition dictation system. Departure Departure: Impression: Primary Impression: Cervical muscle pain Disposition: 01 HOME/RESIDENCE PRIOR TO ADM Condition: STABLE Referrals: PCP,ROJAS (PCP) Patient Instructions: Cervical Sprain, [facility] Scripts Tramadol Hcl (TRAMADOL HCL) 50 Mg Tablet 50 MG PO PRN Q6HRS PRN for PAIN, #10 TAB Prov: PANCHO GOODWIN DO 01/11/20 Prednisone (PREDNISONE) 50 Mg Tablet 1 TAB PO DAILY for neck pain, #5 TAB Prov: PANCHO GOODWIN DO 01/11/20 Justification of Admission: Justification of Admission: Justification of Admission Dx: N/A PANCHO GOODWIN DO Jan 11, 2020 23:57
[2020-01-12 00:08] LABS: BARBITURATES NEG (NEG); BENZODIAZEPINES NEG (NEG); CANNABINOIDS NEG (NEG); COCAINE NEG (NEG); METHADONE NEG (NEG); OPIATES NEG (NEG); PHENCYCLIDINE NEG (NEG)
[2020-01-12 00:10] LABS: BACTERIA,URINE MANY /HPF (0-FEW); BILIRUBIN,URINE NEG (NEG); CLARITY,URINE CLOUDY; COLOR,URINE YELLOW; GLUCOSE,URINE NEG (NEG); NITRITE,URINE POS (NEG); RBC,URINE 0 /HPF (0-2); SQUAMOUS EPITHELIAL CELL,UR MOD /LPF; UROBILINOGEN,URINE 0.2 mg/dL (0.2 mg/dL); WBC,URINE 20-40 /HPF (0-4)
[2020-01-12 00:12] LABS: AMPHETAMINE/METHAMPHETAMINE POS (NEG)
[2020-01-12] MEDS ORDERED: predniSONE 10 MG TABLET PO ONE (00:15)
[2020-01-12] MEDS ORDERED: traMADol 50 MG TABLET PO ONE (00:15)
[2020-01-12] MEDS ORDERED: NITR100C62 PO (00:26)
[2020-01-12] MEDS ORDERED: cefTRIAXone IM 1 GM VIAL IM ONE (00:30)
[2020-01-12 01:50] VITALS: BP 125/82
== END 2020-01-12 01:50 | disposition home or self-care (01) ==
LOC: ER 22:55
DX: M54.2 Cervicalgia (principal); M62.838 Other muscle spasm; N39.0 Urinary tract infection, site not specified; F41.9 Anxiety disorder, unspecified; Z98.890 Other specified postprocedural states; Z88.0 Allergy status to penicillin
CPT/HCPCS: 36415; 80307; 81001; 87086; 96372; 99283; J0696; J7512

== ENCOUNTER 2020-05-13 22:21 | Emergency (ER) | payer OTHER ==
[~2020-05-13] VITALS: Ht 157.5 cm; Wt 64.7 kg
[~2020-05-13 22:21] MED LIST changes: +NITR100C62 PO; +TRAM50TA PO
--- NOTE | 2020-05-13 23:12 | PHYS DOC ---
Past History Past Medical History: Anxiety Past Surgical History: Additional Past Surgical Histo: x2 Smoking: Non-smoker Alcohol Use: Rarely Drug Use: None General Adult EDM: Chief Complaint: VAGINAL BLEEDING HPI: HPI: History obtained from patient. Patient is a 34-year-old female who presents the chief complaint of vaginal bleeding associate with . States first day of her last menstrual period was March 18. She does note that she delivered a baby vaginally 6 months ago. She states she began developing bleeding throughout the day. States the bleeding seems to be increasing in briskness. Denies clot passage. Does note some lower suprapubic abdominal cramping associated with the bleeding. Denies syncope. No chest pain or shortness of breath. Denies lightheadedness. Does state that she has not had an ultrasound to confirm intrauterine given Covid restrictions. She denies vaginal discharge. Denies any urinary symptoms. Denies fevers. Does note she has an RECREATIONAL THERAPIST that she can follow with closely. No other complaints. Review of Systems: Review of Systems: Constitutional: Denies fever or chills Eyes: Denies change in visual acuity HENT: Denies nasal congestion or sore throat Respiratory: Denies cough or shortness of breath Cardiovascular: Denies chest pain or edema GI: Positive for abdominal pain : Positive for vaginal bleeding Musculoskeletal: Denies back pain or joint pain Integument: Denies rash Neurologic: Denies headache, focal weakness or sensory changes Endocrine: Denies polyuria or polydipsia Lymphatic: Denies swollen glands Psychiatric: Denies depression or anxiety Allergies: Allergies: Allergies Coded Allergies Type Severity Reaction Last Updated Verified Penicillins Allergy Mild N/V 09/14/18 Yes Physical Exam: PE: Constitutional: Well developed, well nourished, no acute distress, non-toxic appearance. [] HENT: Normocephalic, atraumatic, bilateral external ears normal, oropharynx moist, no oral exudates, nose normal. [] Eyes: PERRLA, EOMI, conjunctiva normal, no discharge. [] Neck: Normal range of motion, no tenderness, supple, no stridor. [] Cardiovascular:Heart rate regular rhythm, no murmur [] Lungs & Thorax: Bilateral breath sounds clear to auscultation [] Abdomen: Soft, nontender, nonacute abdomen. No involuntary guarding or rigidity noted. No acute peritonitis. Skin: Warm, dry, no erythema, no rash. [] Back: No tenderness, no CVA tenderness. [] Extremities: No tenderness, no cyanosis, no clubbing, ROM intact, no edema. [] Neurologic: Alert and oriented X 3, normal motor function, normal sensory function, no focal deficits noted. [] Psychologic: Affect normal, judgement normal, mood normal. [] Current Patient Data: Labs: Laboratory Tests Test 05/13/20 23:10 05/13/20 23:40 05/14/20 00:31 White Blood Count 6.4 x10^3/uL Red Blood Count 4.42 x10^6/uL Hemoglobin 13.7 g/dL Hematocrit 41.5 % Mean Corpuscular Volume 94 fL Mean Corpuscular Hemoglobin 31 pg Mean Corpuscular Hemoglobin Concent 33 g/dL Red Cell Distribution Width 15.1 % Platelet Count 297 x10^3/uL Neutrophils (%) (Auto) 59 % Lymphocytes (%) (Auto) 24 % Monocytes (%) (Auto) 8 % Eosinophils (%) (Auto) 7 % Basophils (%) (Auto) 1 % Neutrophils # (Auto) 3.8 x10^3uL Lymphocytes # (Auto) 1.5 x10^3/uL Monocytes # (Auto) 0.5 x10^3/uL Eosinophils # (Auto) 0.5 x10^3/uL Basophils # (Auto) 0.1 x10^3/uL Maternal Serum HCG Beta Subunit 2400 mIU/mL Sodium Level 139 mmol/L Potassium Level 3.4 mmol/L Chloride Level 103 mmol/L Carbon Dioxide Level 26 mmol/L Anion Gap 10 Blood Urea Nitrogen 14 mg/dL Creatinine 1.2 mg/dL Estimated GFR (Cockcroft-Gault) 51.1 Glucose Level 95 mg/dL Calcium Level 9.2 mg/dL Urine Collection Type Unknown Urine Color Yellow Urine Clarity Hazy Urine pH 6.5 Urine Specific [place] 1.025 Urine Protein 100 mg/dl Urine Glucose (UA) Neg mg/dL Urine Ketones (Stick) Neg mg/dL Urine Blood Mod Urine Nitrite Pos Urine Bilirubin Neg Urine Urobilinogen Dipstick 0.2 mg/dL Urine Leukocyte Esterase Small Urine RBC 1-2 /HPF Urine WBC >40 /HPF Urine Squamous Epithelial Cells Few /LPF Urine Bacteria Many /HPF Bedside Urine HCG, Qualitative hcg positive Vital Signs: Vital Signs Date Time Temp Pulse Resp B/P (MAP) Pulse Ox O2 Delivery O2 Flow Rate FiO2 05/13/20 22:25 97.8 104 20 124/71 (88) 99 Room Air EKG: EKG: [] Radiology/Procedures: Radiology/Procedures: [address] [id number] IMAGING REPORT Signed PATIENT: CHRISSIE PUGH EACCOUNT: [id number] : 1985 LOCATION: ER AGE: 34 SEX: F EXAM STATUS: PRE ER ORD. PHYSICIAN: PILLO MORRIS DO REASON: vaginal bleeding with PROCEDURE: OB <14 WKS W/TV INDICATION: Reason: vaginal bleeding with / Spl. Instructions: / History: COMPARISON: None. TECHNIQUE: Grayscale and color ultrasound images uterus and adnexa. Transabdominal and transvaginal images obtained. Transvaginal images were needed to better visualize structures that were limited on transabdominal imaging. FINDINGS: Uterus: 93 x 71 x 50 mm. Cystic structures are seen at the cervix. Cystic structure within the endometrial stripe which could be secondary to a gestational sac with a yolk sac within. pole is not seen at this time. Left ovarian cyst measuring up to 25 mm. Right Ovary: 23 x 17 x 14 mm. Left Ovary: 35 x 24 x 31 mm. Vascular flow identified to bilateral ovaries. IMPRESSION: * Intrauterine gestational sac is identified with a yolk sac. A definite pole is not seen at this time. Could be from early gestational age but would obtain a follow-up to ensure that there is appropriate development of a pole to exclude early failure. Estimated gestational age of 6 weeks and 2 days. * Hypoechoic structures at the cervical region could be from nabothian cysts Electronically signed by: Shant Bentley MD (05/14/2020 12:28 AM) [id number] DICTATED AND SIGNED BY: SHANT BENTLEY MD DATE: 05/14/20 0028 CC: PCP,NO; PILLO MORRIS DO ~ [] Heart Score: Risk Factors: Risk Factors: DM, Current or recent (<one month) smoker, HTN, HLP, family history of CAD, obesity. Risk Scores: Score 0 - 3: 2.5% MACE over next 6 weeks - Discharge Home Score 4 - 6: 20.3% MACE over next 6 weeks - Admit for Clinical Observation Score 7 - 10: 72.7% MACE over next 6 weeks - Early Invasive Strategies Course & Med Decision Making: Course & Med Decision Making Pertinent Labs and Imaging studies reviewed. (See chart for details) [] Patient is a 34-year-old female presents with chief complaint of vaginal bleeding and lower abdominal cramping associated . Ultrasound does reveal most likely intrauterine . Gestational sac and yolk sac identified. pole cannot be identified. hCG level approximate 2400. Blood type B+ therefore RhoGam will be deferred. Urinalysis does show some signs of infection. This will be treated with oral Keflex. Remainder of labs been unremarkable including normal hemoglobin. I did discuss pelvic examination with the patient. This time she is declining. Overall I do feel this is reasonable given she states that her bleeding has reduced significantly, no clot passage, no syncope, no severe abdominal pain. Patient was instructed to follow-up with a provider in the next 2 to 3 days to have her hCG levels repeated. She was given very strict return precautions and expressed understa nding. 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 Return precautions discussed and understood. Stable for discharge. Dragon Disclaimer: Dragon Disclaimer: This electronic medical record was generated, in whole or in part, using a voice recognition dictation system. Departure Departure: Impression: Primary Impression: Threatened Disposition: DC HOME SELF CARE/HOMELESS Condition: STABLE Referrals: PCP,NO (PCP) HOMA MEADOWS MD Patient Instructions: Threatened Miscarriage Additional Instructions: Please have hCG hormone levels repeated in the next 2 to 3 days. Scripts Cephalexin (KEFLEX) 500 Mg Capsule 500 MG PO BID for infection for 5 Days, #10 TAB Prov: PILLO MORRIS DO 05/14/20 PILLO MORRIS DO May 13, 2020 23:12
[2020-05-13 23:46] LABS: BASO # 0.1 x10^3/uL (0.0-0.2); BASO % 1 % (0-3); EOS # 0.5 x10^3/uL (0.0-0.7); EOS % 7 % (0-3); HEMATOCRIT 41.5 % (36.0-47.0); HEMOGLOBIN 13.7 g/dL (12.0-15.5); LYMPH # 1.5 x10^3/uL (1.0-4.8); LYMPH % 24 % (24-48); MEAN CORPUSCULAR HEMOGLOBIN 31 pg (25-35); MEAN CORPUSCULAR HGB CONC 33 g/dL (31-37); MEAN CORPUSCULAR VOLUME 94 fL (79-100); MONO # 0.5 x10^3/uL (0.0-1.1); MONO % 8 % (0-9); NEUT # 3.8 x10^3uL (1.8-7.7); NEUT % 59 % (31-73); PLATELET COUNT 297 x10^3/uL (140-400); RED BLOOD COUNT 4.42 x10^6/uL (3.50-5.40); RED CELL DISTRIBUTION WIDTH 15.1 % (11.5-14.5); WHITE BLOOD COUNT 6.4 x10^3/uL (4.0-11.0)
[2020-05-13 23:54] LABS: CALCIUM 9.2 mg/dL (8.5-10.1); CREATININE 1.2 mg/dL (0.6-1.0); GFR 51.1; POTASSIUM 3.4 mmol/L (3.5-5.1)
[2020-05-14 00:31] LABS: BILIRUBIN,URINE NEG (NEG); CLARITY,URINE HAZY; COLOR,URINE YELLOW; GLUCOSE,URINE NEG (NEG); NITRITE,URINE POS (NEG); UROBILINOGEN,URINE 0.2 mg/dL (0.2 mg/dL)
--- NOTE | 2020-05-14 00:31 | RAD ---
INDICATION: Reason: vaginal bleeding with / Spl. Instructions: / History: COMPARISON: None. TECHNIQUE: Grayscale and color ultrasound images uterus and adnexa. Transabdominal and transvaginal images obtained. Transvaginal images were needed to better visualize structures that were limited on transabdominal imaging. FINDINGS: Uterus: 93 x 71 x 50 mm. Cystic structures are seen at the cervix. Cystic structure within the endometrial stripe which could be secondary to a gestational sac with a yolk sac within. pole is not seen at this time. Left ovarian cyst measuring up to 25 mm. Right Ovary: 23 x 17 x 14 mm. Left Ovary: 35 x 24 x 31 mm. Vascular flow identified to bilateral ovaries. IMPRESSION: * Intrauterine gestational sac is identified with a yolk sac. A definite pole is not seen at this time. Could be from early gestational age but would obtain a follow-up to ensure that there is appropriate development of a pole to exclude early failure. Estimated gestational age of 6 weeks and 2 days. * Hypoechoic structures at the cervical region could be from nabothian cysts Electronically signed by: Kd Rouse MD (05/14/2020 12:28 AM) [id number]
[2020-05-14 00:32] LABS: BACTERIA,URINE MANY /HPF (0-FEW); SQUAMOUS EPITHELIAL CELL,UR FEW /LPF; WBC,URINE >40 /HPF (0-4)
[2020-05-14] MEDS ORDERED: CEPH-264 PO (00:41)
[2020-05-14] MEDS ORDERED: CEPHALEXIN 250 MG CAPSULE PO ONE (01:00)
[2020-05-14] MEDS ORDERED: CEPHALEXIN 250 MG CAPSULE ONE (01:00)
[2020-05-14 01:15] VITALS: BP 122/79
== END 2020-05-14 01:15 | disposition home or self-care (01) ==
LOC: ER 22:21
DX: O20.0 Threatened abortion (principal); Z3A.01 Less than 8 weeks gestation of pregnancy; Z98.890 Other specified postprocedural states; Z88.0 Allergy status to penicillin
CPT/HCPCS: 36415; 76801; 76817; 80048; 81001; 81025; 84702; 85025; 86850; 86900; 86901; 87077; 87086; 87186; 99284-25

== ENCOUNTER 2020-05-15 14:33 | Emergency (ER) | payer OTHER ==
[~2020-05-15] VITALS: Ht 157.5 cm; Wt 64.7 kg
[2020-05-15 15:50] VITALS: BP 112/60
[2020-05-15 16:55] LABS: BILIRUBIN,URINE SMALL (NEG); CLARITY,URINE BLOODY; COLOR,URINE RED; GLUCOSE,URINE NEG (NEG)
[2020-05-15 16:56] LABS: BACTERIA,URINE 0 /HPF (0-FEW); NITRITE,URINE POS (NEG); RBC,URINE TNTC /HPF (0-2); WBC,URINE 0 /HPF (0-4)
--- NOTE | 2020-05-15 17:58 | PHYS DOC ---
Past History Past Medical History: Anxiety Past Surgical History: Additional Past Surgical Histo: x2 Smoking: Non-smoker Alcohol Use: Rarely Drug Use: None Adult General Chief Complaint Chief Complaint: VAGINAL BLEEDING [facility] HPI Patient is a 34yo female here for vaginal bleeding. She is ~6 weeks . Was here for same complaint ~48 hours ago and had comprehensive workup, was diag nosed and discharged with threatened . She is here for repeat HCG testing. She is continuing to have mild vaginal bleeding, since last seen. Of note, she was diagnosed with a UTI at last visit, she is on day 2 of antibiotic therapy. Review of Systems Review of Systems Constitutional: Denies fever or chills [] Eyes: Denies change in visual acuity, redness, or eye pain [] HENT: Denies nasal congestion or sore throat [] Respiratory: Denies cough or shortness of breath [] Cardiovascular: No additional information not addressed in HPI [] GI: Denies abdominal pain, nausea, vomiting, bloody stools or diarrhea [] : Denies dysuria or hematuria [] Musculoskeletal: Denies back pain or joint pain [] Integument: Denies rash or skin lesions [] Neurologic: Denies headache, focal weakness or sensory changes [] Endocrine: Denies polyuria or polydipsia [] All other systems were reviewed and found to be within normal limits, except as documented in this note. Allergies Allergies Allergies Coded Allergies Type Severity Reaction Last Updated Verified Penicillins Allergy Mild N/V 09/14/18 Yes Physical Exam Physical Exam Constitutional: Well developed, well nourished, no acute distress, non-toxic appearance. [] HENT: Normocephalic, atraumatic, bilateral external ears normal, oropharynx moist, no oral exudates, nose normal. [] Eyes: PERRLA, EOMI, conjunctiva normal, no discharge. [] Neck: Normal range of motion, no tenderness, supple, no stridor. [] Cardiovascular:Heart rate regular rhythm, no murmur [] Lungs & Thorax: Bilateral breath sounds clear to auscultation [] Abdomen: Bowel sounds normal, soft, no tenderness, no masses, no pulsatile masses. [] Skin: Warm, dry, no erythema, no rash. [] Back: No tenderness, no CVA tenderness. [] Extremities: No tenderness, no cyanosis, no clubbing, ROM intact, no edema. [] Neurologic: Alert and oriented X 3, normal motor function, normal sensory function, no focal deficits noted. [] Psychologic: Affect normal, judgement normal, mood normal. [] Current Patient Data Vital Signs Vital Signs Date Time Temp Pulse Resp B/P (MAP) Pulse Ox O2 Delivery O2 Flow Rate FiO2 05/15/20 15:50 80 16 112/60 (77) 99 Room Air 05/15/20 14:50 98.6 Lab Results Laboratory Tests Test 05/15/20 16:04 05/15/20 16:42 Urine Collection Type Unknown Urine Color Red Urine Clarity Bloody Urine pH 6.0 Urine Specific [place] 1.025 Urine Protein >100 mg/dl (NEG-TRACE) Urine Glucose (UA) Neg mg/dL (NEG) Urine Ketones (Stick) Neg mg/dL (NEG) Urine Blood Large (NEG) Urine Nitrite Pos (NEG) Urine Bilirubin Small (NEG) Urine Urobilinogen Dipstick 1.0 mg/dL (0.2 mg/dL) Urine Leukocyte Esterase Small (NEG) Urine RBC Tntc /HPF (0-2) Urine WBC 0 /HPF (0-4) Urine Squamous Epithelial Cells None /LPF Urine Bacteria 0 /HPF (0-FEW) Maternal Serum HCG Beta Subunit 633 mIU/mL (0-6) H EKG EKG [] Radiology/Procedures Radiology/Procedures [] Heart Score Risk Factors: Risk Factors: DM, Current or recent (<one month) smoker, HTN, HLP, family history of CAD, obesity. Risk Scores: Risk Factors: DM, Current or recent (<one month) smoker, HTN, HLP, family history of CAD, obesity. Course & Med Decision Making Course & Med Decision Making Pertinent Labs and Imaging studies reviewed. (See chart for details) Discussed most likely diagnosis of inevitable miscarriage. Patient has follow-up with [employer] this week. She is relatively asymptomatic and on antibiotic treatment for UTI. Joint decision to discharge home Strict return precautions discussed with good understanding, all questions and concerns addressed prior to ed discharge Dragon Disclaimer Dragon Disclaimer This electronic medical record was generated, in whole or in part, using a voice recognition dictation system. Departure Departure: Impression: Primary Impression: Inevitable spontaneous Disposition: 01 DC HOME SELF CARE/HOMELESS Condition: STABLE Referrals: PCP,NO (PCP) Patient Instructions: Miscarriage TANESHA BAR DO May 15, 2020 17:58
== END 2020-05-15 18:03 | disposition home or self-care (01) ==
LOC: ER 14:33
DX: O03.4 Incomplete spontaneous abortion without complication (principal); F41.9 Anxiety disorder, unspecified; Z98.890 Other specified postprocedural states; Z88.0 Allergy status to penicillin
CPT/HCPCS: 36415; 81001; 84702; 87086; 99283; 99284-25

== ENCOUNTER 2020-12-28 16:58 | Emergency (ER) | payer OTHER ==
[~2020-12-28] VITALS: Ht 157.5 cm; Wt 64.7 kg
[2020-12-28 17:12] VITALS: BP 123/91
[2020-12-28] MEDS ORDERED: ACETAMINOPHEN 500 MG TABLET PO ONE (18:00)
[2020-12-28] MEDS ORDERED: DEXAMETHASONE SOD PHOS 10 MG/ML VIAL. IM ONE (18:00)
--- NOTE | 2020-12-28 18:13 | PHYS DOC ---
Past History Past Medical History: Anxiety, Depression (LUIS RAMIREZ APRN) Past Surgical History: Additional Past Surgical Histo: x2 (LUIS RAMIREZ APRN) Smoking: Non-smoker Alcohol Use: Rarely Drug Use: None (LUIS RAMIREZ APRN) Adult General Chief Complaint Chief Complaint: UPPER EXTREMITY PAIN HPI HPI Patient is a 35-year-old female who presents to the emergency department with a chief complaint of left upper extremity burning from right side of her neck crossed her right shoulder and down to the back of her upper arm since a reported fall down 8-10 [address]ed steps approximately 1-1/2 hours ago prior to arrival. Patient reports she tripped over a megablock toy at the doorway at the top of the steps. Patient denies striking her head or any other injuries to her body. Patient denies any other physical complaints or physical concerns. Patient reports an allergy to penicillin, states she takes prescription Lexapro Wellbutrin and Klonopin that is managed by her neurologist Dr. Dominguez. Patient also reports a history of stage II kidney disease however does not see a fire equipment inspector helper or take any medications for kidney disease. Patient states she only sees Dr. Dominguez. Patient reports her last menstrual cycle was December 05 with normal duration and flow. Patient denies any other physical complaints or physical concerns. (LUIS RAMIREZ APRN) Review of Systems Review of Systems 14 body systems of review of systems have been reviewed. See HPI for pertinent positives and negative responses, otherwise all other systems are negative, nonpertinent or noncontributory. (LUIS RAMIREZ APRN) Current Medications Current Medications Current Medications Medications (Trade) Dose Ordered Sig/Joan Start Time Stop Time Status Last Admin Dose Admin Acetaminophen (Tylenol) 1,000 mg 1X ONCE 12/28/20 18:00 12/28/20 18:01 UNV Dexamethasone Sodium Phosphate (Decadron) 10 mg 1X ONCE 12/28/20 18:00 12/28/20 18:01 UNV (LUIS RAMIREZ APRN) Allergies Allergies Allergies Coded Allergies Type Severity Reaction Last Updated Verified Penicillins Allergy Mild N/V 09/14/18 Yes (LUIS RAMIREZ APRN) Physical Exam Physical Exam Constitutional: Well developed, well nourished, no acute distress, non-toxic appearance. 35-year-old female in no apparent distress. Patient's complaint of pain exceeds patient's physical appearance and presentation. HENT: Normocephalic, atraumatic, bilateral external ears normal, oropharynx moist, no oral exudates, nose normal. There is no archuleta sign, no raccoon eyes, no trismus, no malocclusion, no drooling. Patient speaking in normal voice tones. There are no depressions or areas of ecchymosis or contusions of the face or head. Eyes: PERRLA, EOMI, conjunctiva normal, no discharge. Satisfactory 6 cardinal eye movements. Neck: Normal range of motion, no tenderness, supple, no stridor. No meningismus signs, no nuchal rigidity, no midline C-spine tenderness to palpations, no step- offs appreciated, no contusions or areas of ecchymosis of the neck. Cardiovascular: No cyanosis appreciated, distal cap refill less than 2 seconds Lungs & Thorax: Patient is in no respiratory distress, no audible adventitious lung sounds appreciated. Skin: Warm, dry, no erythema, no rash. Back: No tenderness, no CVA tenderness. No areas of ecchymosis or contusions to the lower or mid back. Complains of pain to palpation along trapezius muscle. Extremities: No tenderness, no cyanosis, no clubbing, ROM intact, no edema. Except for right upper extremity from shoulder down to lower upper arm complaining of pain and burning to palpation of muscular structures, full AROM/PROM of shoulder joint and elbow joint and hand and fingers. There is no swelling, no contusions, no areas of ecchymosis, no deformity, no crepitus appreciated. No edema, distal cap refill is less than 2 seconds, 2+ radial pul ses. Neurologic: Alert and oriented X 3, normal motor function, normal sensory function, no focal deficits noted. Psychologic: Affect normal, judgement normal, mood normal. (LUIS RAMIREZ APRN) Current Patient Data Vital Signs Vital Signs Date Time Temp Pulse Resp B/P (MAP) Pulse Ox O2 Delivery O2 Flow Rate FiO2 12/28/20 17:12 98.3 98 16 123/91 (102) 98 Room Air (LUIS RAMIREZ APRN) EKG EKG [] (LUIS RAMIREZ APRN) Radiology/Procedures Radiology/Procedures [] (LUIS RAMIREZ APRN) Heart Score C/O Chest Pain: No Risk Factors: Risk Factors: DM, Current or recent (<one month) smoker, HTN, HLP, family history of CAD, obesity. Risk Scores: Risk Factors: DM, Current or recent (<one month) smoker, HTN, HLP, family history of CAD, obesity. (LUIS RAMIREZ APRN) Course & Med Decision Making Course & Med Decision Making Pertinent Labs and Imaging studies reviewed. (See chart for details) 35-year-old female, vital signs reviewed, presents emergency department after reported fall down 8-10 carpeted steps. Physical presentation not consistent with patient's description of events. Patient's physical examination is consistent with trapezius muscle strain. Upon review of patient case with patient's retail planner ED staff that is primary care of patient, retail planner stated that the patient explained the events to him as she started to fall down the steps as she caught herself with her right upper arm but did not actually fall, stating that she pulled her muscle in someway. This description of events is consistent with patient physical examination. This is most likely a musculoskeletal strain. Will treat patient's complaint of reporting burning sensation down her trapezius muscle across shoulder and to the upper arm with 10 mg IM Decadron, will give 1 g of Tylenol for pain. Considered NSAID therapy however with patient's chief complaint of stage II kidney disease, prescribe 10 mg Flexeril muscle relaxer and 10 tablets of tramadol for acute pain recommending ice therapy 30 minutes on 30 minutes off, continue to take [id number] Tylenol as needed for pain, strict follow-up with Dr. Dominguez tomorrow. There was no bony abnormality appreciated, x-ray imaging not indicated, the patient agrees that she does not feel like she needs an x-ray as she did not really strike her body against anything hard. Patient gave verbal understanding of discharge home instructions, follow-up with Dr. Dominguez tomorrow, return to ER precautions and concerns, patient was discharged home without incident. (LUIS RAMIREZ APRN) Dragon Disclaimer Dragon Disclaimer This electronic medical record was generated, in whole or in part, using a voice recognition dictation system. (LUIS RAMIREZ APRN) Departure Departure: Impression: Primary Impression: Trapezius muscle strain Disposition: HOME / SELF CARE / HOMELESS Condition: GOOD Referrals: PCP,NO (PCP) ALMA DOMINGUEZ MD Patient Instructions: Arm Sling Use-Brief, Muscle Cramps, Intd-ta-Bocp, RICE - Routine Care for Injuries Additional Instructions: You were seen today in the emergency department for an injury to your right shoulder after reporting falling down the steps. Your physical examination was consistent with a trapezius muscle strain. You were treated today for your b urning sensation with an intramuscular injection steroid called Decadron. You were also given 1 g of Tylenol by mouth for pain and discomfort. Please use ice therapy 30 minutes on and 30 minutes off while awake for the next 24 to 48 hours. Sling as needed for comfort. Please take prescribed medications for pain and discomfort as directed. Please follow-up with Dr. Dominguez tomorrow for ongoing pain management. Please keep your appointments with your fire equipment inspector helper related to your reported history of stage II kidney disease. Please return to the emergency department for worsening symptoms or other concerns. EMERGENCY DEPARTMENT GENERAL DISCHARGE INSTRUCTIONS Thank you for coming to [facility] (ED) today and trusting us with you care. We trust that you had a positivie experience in our Emergency Department. If you wish to speak to the department management, you may call the director at [phone]. YOUR FOLLOW UP INSTRUCTIONS ARE FOLLOWS: 1. Do you have a private Doctor? If you do not have a private doctor, please ask for a resource list of physicians or clinics that may be able to assist you with follow up care. 2. The Emergency Physician has interpreted your x-rays. The X-Ray specialist will also review them. If there is a change in the findings, you will be notified in 48 hours when at all possible. 3. A lab test or culture has been done, your results will be reviewed and you will be notified if you need a change in treatment. ADDITIONAL INSTRUCTIONS AND INFORMATION: 1. Your care today has been supervised by a physician who is specially trained in emergency care. Many problems require more than one evaluation for a complete diagnosis and treatment. We recommend that you schedule your follow up appointment as recomm ended to ensure complete treatment of you illness or injury. If you are unable to obtain follow up care and continue to have a problem, or if your condition worsens, we recommend that you return to the ED. 2. We are not able to safely determine your condition over the phone nor are we able to give sound medical advice over the phone. For these safety reasons, if you call for medical advice we will ask you to come to the ED for further evaluation. 3. If you have any questions regarding these discharge instructions please call the ED at [phone]. SAFETY INFORMATION: In the interest of safety, wellness, and injury prevention; we encourage you to wear your sealbelt, if you smoke; quite smoking, and we encourage family to use a protective helmet for bicycling and other sporting events that present an increased risk for head injury. IF YOUR SYMPTOMS WORSEN OR NEW SYMPTOMS DEVELOP, OR YOU HAVE CONCERNS ABOUT YOUR CONDITION; OR IF YOUR CONDITION WORSENS WHILE YOU ARE WAITING FOR YOUR FOLLOW UP APPOINTMENT; EITHER CONTACT YOUR PRIMARY CARE DOCTOR, THE PHYSICIAN WHOSE NAME AND NUMBER YOU WERE GIVEN, OR RETURN TO THE ED IMMEDIATELY. Scripts Cyclobenzaprine Hcl (CYCLOBENZAPRINE HCL) 10 Mg Tablet 1 TAB PO TID PRN PRN for PAIN, #12 TAB 0 Refills Prov: LUIS RAMIREZ APRN 12/28/20 Tramadol Hcl (TRAMADOL HCL) 50 Mg Tablet 50 MG PO PRN Q6HRS PRN for PAIN, #10 TAB 0 Refills Prov: LUIS RAMIREZ APRN 12/28/20 Attending Signature Attending Signature I have reviewed the PA/HOME SCHOOL TEACHER's note and plan of care. I was available for consultation as needed during the patient's visit in the emergency department. I agree with the clinical impression, plan, and disposition. (LUIS QUESADA DO) Problem Qualifiers Primary Impression: Trapezius muscle strain Encounter type: initial encounter Laterality: right Qualified Codes: S46.811A - Strain of other muscles, fascia and tendons at shoulder and upper arm level, right arm, initial encounter LUIS RAMIREZ APRN Dec 28, 2020 18:13 LUIS QUESADA DO Dec 28, 2020 19:39
[2020-12-28] MEDS ORDERED: CYCL-331 PO (18:21)
[2020-12-28] MEDS ORDERED: TRAM50TA PO (18:21)
== END 2020-12-28 18:30 | disposition home or self-care (01) ==
LOC: ER 16:58
DX: S29.012A Strain of muscle and tendon of back wall of thorax, initial encounter (principal); F41.9 Anxiety disorder, unspecified; F32.9 Major depressive disorder, single episode, unspecified; Z98.890 Other specified postprocedural states; Z88.0 Allergy status to penicillin; W10.8XXA Fall (on) (from) other stairs and steps, initial encounter; Y93.89 Activity, other specified; Y92.89 Other specified places as the place of occurrence of the external cause; Y99.8 Other external cause status
CPT/HCPCS: 96372; 99283; J1100